=== PATIENT | female | born 1955 | race Caucasian/White ===

== ENCOUNTER 2022-04-14 13:23 | Outpatient (CLI) | payer MEDICARE, OTHER ==
--- NOTE | 2022-04-14 17:00 | XRAY Report ---
PROCEDURE: Lumbar Spine Complete INDICATIONS: LOW BACK PAIN, CHRONIC TECHNIQUE: 5 views of the lumbar spine were acquired. COMPARISON: None. FINDINGS: Bones: 5 [id number] vertebrae are present. There is 3 mm retrolisthesis of L2 on L3. Degenerat isidoro endplate changes are noted throughout lumbar spine. No vertebral body compression fractures. No suspicious bony lesions. Oblique views shows no gross pars defects. Soft tissues: Overlying bowel gas pattern is normal. No suspicious soft tissue calcifications. IMPRESSION: Grade 1 anterolisthesis of L2 on L3. No acute vertebral body compression fracture. Mild degenerative disc disease throughout lumbar spine. No gross pars defects. Reviewed by: Kelton Albert MD on 04/14/2022 4:59 PM PST Approved by: Kelton Albert MD on 04/14/2022 4:59 PM PST Station ID: [id number]
== END 2022-04-14 13:24 | disposition home or self-care (01) ==
LOC: DI.S 13:23
PROVIDERS: ATTEND Internal Medicine
DX: M51.36 Other intervertebral disc degeneration, lumbar region (principal); M43.16 Spondylolisthesis, lumbar region

== ENCOUNTER 2022-07-03 12:59 | Outpatient (CLI) | payer MEDICARE, OTHER ==
--- NOTE | 2022-07-03 19:01 | CT Report ---
PROCEDURE: Low Dose Lung Cancer Screen INDICATIONS: HIST OF SMOKING TECHNIQUE: Noncontrast low-dose axial images were acquired from the pulmonary apices to the posterior costophren ic angles. Multiplanar MIP reformats were then reconstructed. For radiation dose reduction, the follo wing was used: automated exposure control, adjustment of mA and/or kV according to patient size. COMPARISON: None. FINDINGS: Image quality: Excellent. Lungs and pleura: No pleural effusions. No pneumothorax. No suspicious pulmonary nodules which requi re follow up. Mediastinum: Heart size is normal. No pericardial effusions. No mediastinal adenopathy by size criter ia. No large vessel abnormality. Chest wall and lower neck: Thyroid is unremarkable. No axillary or supraclavicular adenopathy by size . Bones: No aggressive osseous abnormality. Upper Abdomen: Unremarkable. IMPRESSION: Lung RAD: 1 - Negative. Continue annual screening in 12 Months with LDCT Non-Lung Significant Findings: None Reviewed by: Cesario Cardenas MD on 07/03/2022 5:59 PM AKELI Approved by: Cesario Cardenas MD on 07/03/2022 5:59 PM AKDT Station ID: [id number]
== END 2022-07-03 13:00 | disposition home or self-care (01) ==
LOC: DI 12:59
PROVIDERS: ATTEND Registered Nurse
DX: Z12.2 Encounter for screening for malignant neoplasm of respiratory organs (principal); Z87.891 Personal history of nicotine dependence

== ENCOUNTER 2023-03-04 09:16 | Outpatient (CLI) | payer MEDICARE, OTHER ==
--- NOTE | 2023-03-04 11:34 | XRAY Report ---
PROCEDURE: Shoulder 3 View LT INDICATIONS: Rotator cuff impingement syndrome. TECHNIQUE: 3 views of the shoulder were acquired. COMPARISON: None. FINDINGS: Bones: No fractures or dislocations. No suspicious bony lesions. Visualized ribs appear intact. Soft tissues: No suspicious soft tissue calcifications. The visualized lungs are within normal limi ts. IMPRESSION: No acute bony abnormality. If clinical symptoms persist, consider MRI for further evaluation. Reviewed by: Chele Shields MD on 03/04/2023 11:[address] [facility] Approved by: Chele Shields MD on 03/04/2023 11:[address] [facility] Station ID: [id number]
[2023-03-04 15:32] LABS: BASOPHILS % (AUTO) 0.3 %; EOSINOPHILS # (AUTO) 0.1 10^3/uL (0.0-0.7); EOSINOPHILS % (AUTO) 1.2 %; HCT - HEMATOCRIT 42.1 % (37.0-47.0); HGB - HEMOGLOBIN 13.3 g/dL (12.0-16.0); LYMPHOCYTES # (AUTO) 0.8 10^3/uL (1.5-3.5); LYMPHOCYTES % (AUTO) 12.1 %; MEAN CORPUSCULAR HEMOGLOBIN 27.3 pg (27.0-31.0); MEAN CORPUSCULAR HGB CONC 31.6 g/dL (32.0-36.0); MEAN CORPUSCULAR VOLUME 86.4 fL (81.0-99.0); MEAN PLATELET VOLUME 10.3 fL (7.9-10.8); MONOCYTES # (AUTO) 0.5 10^3/uL (0.0-1.0); MONOCYTES % (AUTO) 6.8 %; NEUTROPHILS # (AUTO) 5.3 10^3/uL (1.5-6.6); NEUTROPHILS % (AUTO) 79.4 %; PLT - PLATELET COUNT 252 10^3/uL (130-450); RED BLOOD COUNT 4.87 10^6/uL (4.20-5.40); RED CELL DISTRIBUTION WIDTH 13.9 % (12.0-15.0); WHITE BLOOD COUNT 6.6 x10^3/uL (4.8-10.8)
[2023-03-04 16:04] LABS: THYROID STIMULATING HORMONE 1.34 uIU/mL (0.34-5.60)
[2023-03-04 16:06] LABS: ALBUMIN 4.4 g/dL (3.2-5.5); ALBUMIN/GLOBULIN RATIO 1.7 (1.0-2.2); ALKALINE PHOSPHATASE 44 IU/L (42-121); ALT ALANINE AMINOTRANSFERASE 17 IU/L (10-60); AST ASPARTATE AMINOTRANSFERASE 21 IU/L (10-42); BILIRUBIN,TOTAL 0.6 mg/dL (0.2-1.0); BUN - BLOOD UREA NITROGEN 11 mg/dL (6-20); CALCIUM 9.8 mg/dL (8.5-10.3); CARBON DIOXIDE - CO2 29 mmol/L (21-32); CHLORIDE 104 mmol/L (101-111); CHOL/HDL RATIO 3.5 (<4.4); CHOLESTEROL 220 mg/dL; CREATININE 0.7 mg/dL (0.6-1.3); GFR - MDRD 83 (>89); GLUCOSE 95 mg/dL (74-104); HDL CHOLESTEROL 62 mg/dL; LDL CHOLESTEROL,CALCULATED 137 mg/dL; LDL/HDL RATIO 2.2 (<4.4); POTASSIUM 4.1 mmol/L (3.5-4.5); SODIUM 139 mmol/L (135-145); TRIGLYCERIDES 104 mg/dL (48-352); VLDL CHOLESTEROL 21 mg/dL
[2023-03-04 18:22] LABS: ESTIMATED AVERAGE GLUCOSE 114 mg/dL (70-100); HEMOGLOBIN A1c% 5.6 % (4.27-6.07)
== END 2023-03-04 09:17 | disposition home or self-care (01) ==
LOC: DI.S 09:16
PROVIDERS: ATTEND Internal Medicine
DX: M75.100 Unspecified rotator cuff tear or rupture of unspecified shoulder, not specified as traumatic (principal); R26.89 Other abnormalities of gait and mobility; R25.2 Cramp and spasm; R42 Dizziness and giddiness; E78.5 Hyperlipidemia, unspecified; E55.9 Vitamin D deficiency, unspecified; R73.09 Other abnormal glucose
CPT/HCPCS: 36415; 80053; 80061; 82306; 82607; 83036; 83721; 84443; 85025

== ENCOUNTER 2023-07-08 09:07 | Outpatient (CLI) | payer MEDICARE, OTHER ==
--- NOTE | 2023-07-08 11:45 | DEXA Report ---
PROCEDURE: Dexa Spine and/or Hip INDICATIONS: OSTEOPOROSIS TECHNIQUE: Dual energy x-ray absorptiometry (DXA) was performed on a [employer] System. Regions measur ed are the AP Spine, femoral neck, and if needed forearm. COMPARISON: None FINDINGS: Lumbar Spine: Bone Mineral Density: 0.85 g/cm/cm,T score: -2.8. Left Femoral Neck: Bone Mineral Density: 0.75 g/cm/cm, T score: -2.1. Left Hip: Bone Mineral Density: 0.77 g/cm/cm,T score: -1.9. (T score greater or equal to -1.0: NORMAL) (T score from -1.1 to -2.4: OSTEOPENIA) (T score less than or equal to -2.5 to: OSTEOPOROSIS) Impression: By WHO criteria, this patient has osteoporosis. Patients with diagnosis of osteoporosis or osteopenia should have regular bone mineral density assess ment. For those eligible for Medicare, routine testing is allowed once every 2 years. Testing frequ ency can be increased for patients who have rapidly progressing disease or for those who are receivin g medical therapy to restore bone mass. Reviewed by: Michel Concepcion MD on 07/08/2023 11:44 AM PDT Approved by: Michel Concepcion MD on 07/08/2023 11:44 AM PDT Station ID: [id number]
--- NOTE | 2023-07-08 16:30 | CT Report ---
PROCEDURE: Lung Cancer Screen INDICATIONS: HISTORY NICOTINE DEPENDENCE TECHNIQUE: A CT scan of the chest was performed. Intravenous contrast media was not administered. Images were re corded and evaluated at appropriate window settings. Reformats: axial MIP of the chest, coronal and s agittal. For radiation dose reduction, the following was used: automated exposure control, adjustment of mA and/or kV according to patient size. COMPARISON: CT chest on July 03, 2022. FINDINGS: Image quality: Excellent. Prior cancer history: Unsure. Lungs and pleura: No pleural effusions. No pneumothorax. Compared to CT chest dated July 03, 2022, n o new or enlarging solid pulmonary nodules or consolidation. Left lower lobe subcentimeter calcified granuloma. Bilateral lower lobe linear atelectasis/scar. Patent central airways. Mild apical predomin ant centrilobular emphysema. Mediastinum: Heart size is normal. No pericardial effusion. No large vessel abnormality. No mediastin al adenopathy by size criteria. No significant coronary calcifications. Chest wall and lower neck: Thyroid is unremarkable. No axillary or supraclavicular adenopathy by size . Bones: No aggressive osseous abnormality. No acute fractures. Degenerative changes at L1-L2. Upper Abdomen: Unremarkable. IMPRESSION: 1. Compared to CT chest dated July 03, 2022, no new or enlarging solid pulmonary nodules or consolida tion. Lung RAD: 1 - Negative. Recommendation: Continue annual screening in 12 Months with LDCT 2. Mild emphysema. Reviewed by: Nir Locke MD on 07/08/2023 4:29 PM PDT Approved by: Nir Locke MD on 07/08/2023 4:29 PM PDT Station ID: [id number]
== END 2023-07-08 09:08 | disposition home or self-care (01) ==
LOC: DI 09:07
PROVIDERS: ATTEND Internal Medicine
DX: Z12.2 Encounter for screening for malignant neoplasm of respiratory organs (principal); J43.9 Emphysema, unspecified; M81.0 Age-related osteoporosis without current pathological fracture; Z87.891 Personal history of nicotine dependence

== ENCOUNTER 2023-07-26 08:00 | Outpatient (CLI) | payer MEDICARE, OTHER | END 2023-07-26 08:01 | disposition home or self-care (01) | LOC: LAB.S 08:00 | PROVIDERS: ATTEND Registered Nurse | DX: Z53.9 Procedure and treatment not carried out, unspecified reason (principal) ==

== ENCOUNTER 2023-09-13 08:00 | Outpatient (CLI) | payer MEDICARE, OTHER | END 2023-09-13 23:59 | disposition home or self-care (01) | LOC: LAB.S 08:00 | PROVIDERS: ATTEND Registered Nurse | DX: R30.0 Dysuria (principal) | CPT/HCPCS: 87086; 87181 ==

== ENCOUNTER 2023-11-09 07:14 | Outpatient (CLI) | payer MEDICARE, OTHER | END 2023-11-09 07:15 | disposition home or self-care (01) | LOC: LAB.S 07:14 | PROVIDERS: ATTEND Internal Medicine | DX: L30.9 Dermatitis, unspecified (principal) | CPT/HCPCS: 81599 ==